=== PATIENT | male | born 1985 | race American Indian/Alaskan Native ===

== ENCOUNTER 2017-03-03 21:28 | Emergency (ER) | payer OTHER ==
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
[2017-03-04 02:23] VITALS: BP 131/96
== END 2017-03-04 02:23 | disposition home or self-care (01) ==
LOC: ED 21:28
DX: S39.012A Strain of muscle, fascia and tendon of lower back, initial encounter (principal); V89.2XXA Person injured in unspecified motor-vehicle accident, traffic, initial encounter; Y92.488 Other paved roadways as the place of occurrence of the external cause; Y93.89 Activity, other specified; Y99.8 Other external cause status; F17.200 Nicotine dependence, unspecified, uncomplicated
CPT/HCPCS: 99282